=== PATIENT | male | born 2005 | race African-American/Black ===

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

== ENCOUNTER 2024-07-13 16:11 | Emergency (ER) | payer BC ==
[2024-07-13] MEDS ORDERED: Ibuprofen 800 MG TAB ONE (16:25)
== END 2024-07-13 16:59 | disposition home or self-care (01) ==
LOC: NAV ERS 16:11
DX: M25.532 Pain in left wrist (principal)
CPT/HCPCS: 99283